=== PATIENT | male | born 1955 | race Caucasian/White ===

== ENCOUNTER → 2017-09-15 | Outpatient (CLI) | payer MEDICARE, OTHER ==
[~2017-09-15] MED LIST: ATEN-65 PO; ATOR40TA24 PO; GLIP-152 PO; LOSA100T67 PO; METF-420 PO; SILD100T59 PO; TRAM-420 PO; lidocaine patch
[2017-09-15 11:56] LABS: PLATELET COUNT, AUTOMATED 228 K/uL (150-450)
== END ==
LOC: LAB 11:35
PROVIDERS: ATTEND Emergency Medicine
DX: I10 Essential (primary) hypertension (principal); E11.9 Type 2 diabetes mellitus without complications; E83.52 Hypercalcemia
CPT/HCPCS: 36415; 82040; 82247; 82306; 82310; 82374; 82435; 82565; 82947; 83036; 83970; 84075; 84132; 84155; 84165; 84295; 84450; 84460; 84520; 85025

== ENCOUNTER → 2017-10-04 | Outpatient (CLI) | payer MEDICARE ==
[~2017-10-04] MED LIST changes: +ATOR-1 PO
--- NOTE | 2017-10-04 12:27 | EKG ---
FACILITY: [facility] [place] PATIENT NAME: RAINER GORDON : [id number] MR: [id number] V: [id number] EXAM DATE: ORDERING PHYSICIAN: ANIBAL YANEZ TECHNOLOGIST: NISSA ELLINGTON Test Reason : HYPERTENSION Blood Pressure : / mmHG Vent. Rate : 062 BPM Atrial Rate : 062 BPM P-R Int : 122 ms QRS Dur : 090 ms QT Int : 420 ms P-R-T Axes : 051 048 023 degrees QTc Int : 426 ms Normal sinus rhythm with sinus arrhythmia Normal ECG No previous ECGs available Referred By: Confirmed By:
== END ==
LOC: RESP 11:56
PROVIDERS: ATTEND Emergency Medicine
DX: Z02.9 Encounter for administrative examinations, unspecified (principal)

== ENCOUNTER → 2018-04-25 | Outpatient (CLI) | payer MEDICARE ==
[~2018-04-25] MED LIST changes: -LOSA100T67 PO; +LOSA100T69 PO; -METF-420 PO; +METF-452 PO
== END ==
LOC: LAB 11:30
PROVIDERS: ATTEND Emergency Medicine
DX: E11.9 Type 2 diabetes mellitus without complications (principal); E55.9 Vitamin D deficiency, unspecified
CPT/HCPCS: 36415; 82306; 82465; 83036; 83718; 84478

== ENCOUNTER → 2018-10-26 | Outpatient (CLI) | payer MEDICARE ==
[~2018-10-26] MED LIST changes: -LOSA100T69 PO; +LOSA100T75 PO
[2018-10-26 11:18] LABS: PLATELET COUNT, AUTOMATED 256 K/uL (150-450)
[2018-10-26 12:00] LABS: LDL CHOLESTEROL 55 mg/dl
== END ==
LOC: LAB 11:02
PROVIDERS: ATTEND Emergency Medicine
DX: E78.5 Hyperlipidemia, unspecified (principal); I10 Essential (primary) hypertension; E11.9 Type 2 diabetes mellitus without complications; E55.9 Vitamin D deficiency, unspecified; Z12.5 Encounter for screening for malignant neoplasm of prostate; D64.9 Anemia, unspecified
CPT/HCPCS: 36415; 82040; 82247; 82306; 82310; 82374; 82435; 82465; 82565; 82947; 83036; 83540; 83550; 83718; 84075; 84132; 84153; 84155; 84295; 84450; 84460; 84478; 84520; 85025